=== PATIENT | male | born 1980 | race Caucasian/White ===

== ENCOUNTER 2021-01-23 11:47 | Emergency (ER) | payer BC, MEDICAID, OTHER ==
[~2021-01-23] VITALS: Ht 182.9 cm; Wt 123.3 kg
[2021-01-23 13:46] VITALS: BP 149/70
== END 2021-01-23 13:51 | disposition home or self-care (01) ==
LOC: ED 13:46
DX: S30.0XXA Contusion of lower back and pelvis, initial encounter (principal); S90.32XA Contusion of left foot, initial encounter; L03.317 Cellulitis of buttock; W18.30XA Fall on same level, unspecified, initial encounter; Y93.89 Activity, other specified; Y92.89 Other specified places as the place of occurrence of the external cause; Y99.8 Other external cause status
CPT/HCPCS: 72110; 72220; 99284